=== PATIENT | female | born 1955 | race Caucasian/White ===

== ENCOUNTER 2022-04-14 15:45 | Observation (INO) ==
[2022-04-14] MEDS ORDERED: 0.9 % Sodium Chloride 1,000 ML IVC ONE (16:06)
[2022-04-14] MEDS ORDERED: 0.9 % Sodium Chloride 1,000 ML IVC SCH (16:15)
[2022-04-14] MEDS ORDERED: Naloxone 0.4 MG/ML INJ IVP PRN ×3 (17:27→17:51)
[2022-04-14] MEDS ORDERED: Ibuprofen 400 MG TABLET PO ONE (17:55)
[2022-04-14] MEDS ORDERED: Oxymetazoline Nasal SPRAY BOTTLE 15ML NS SCH (18:00)
[2022-04-14] MEDS: 0.9 % Sodium Chloride 1,000 ML IVC SCH (22:35)
[2022-04-15 06:04] LABS: Basophils # 0.1 K/mcL (0.0-0.2); Basophils % 0.8 %; Eosinophils # 0.1 K/mcL (0.0-0.6); Eosinophils % 0.7 %; Hematocrit 25.8 % (35.3-44.9); Hemoglobin 9.3 g/dL (11.5-15.4); Immature Granulocytes % 1.1 % (0-4); Lymphocytes # 0.8 K/mcL (0.6-4.6); Lymphocytes % 10.7 %; Mean Corpuscular Hemoglobin 33.7 pg (28.0-33.3); Mean Corpuscular Volume 93.5 fL (83.0-100.0); Mean Platelet Volume 8.2 fL (9.4-12.4); Monocytes # 0.8 K/mcL (0.0-1.3); Monocytes % 11.1 %; Neutrophils # 5.6 K/mcL (1.6-8.9); Platelet Count 372 K/mcL (140-400); Red Blood Count 2.76 M/mcL (3.82-4.97); Red Cell Distribution Width 12.9 % (11.5-14.5); Segmented Neutrophils % 75.6 %; White Blood Count 7.4 K/mcL (4.3-11.1)
[2022-04-15 06:28] LABS: Albumin 3.8 g/dL (3.5-5.7); Albumin/Globulin Ratio 1.7 (1.1-2.2); Bilirubin,Total 0.6 mg/dL (0.3-1.0); Calcium 9.2 mg/dL (8.6-10.3); Globulin 2.3 g/dL (2.4-3.5); Magnesium 1.3 mg/dL (1.6-2.6); Potassium 3.6 mEq/L (3.5-5.1); Total Protein 6.1 g/dL (6.4-8.9)
[2022-04-15] MEDS: *HR* Enoxaparin 40 MG/0.4 ML SYRINGE SQ SCH (06:32)
[2022-04-15] MEDS: 0.9 % Sodium Chloride 1,000 ML IVC SCH (08:48)
[2022-04-15] MEDS ORDERED: methylPREDNISolone 4 MG TABLET PO SCH (09:00)
[2022-04-15] MEDS ORDERED: traZODone 50 MG TABLET PO PRN (19:13)
[2022-04-16 00:24] VITALS: RESP 16
[2022-04-16] MEDS: *HR* Enoxaparin 40 MG/0.4 ML SYRINGE SQ SCH (05:30)
[2022-04-16 07:04] LABS: Basophils # 0.1 K/mcL (0.0-0.2); Basophils % 0.9 %; Eosinophils % 0.3 %; Hematocrit 24.8 % (35.3-44.9); Hemoglobin 8.8 g/dL (11.5-15.4); Immature Granulocytes % 1.6 % (0-4); Lymphocytes # 0.6 K/mcL (0.6-4.6); Lymphocytes % 8.4 %; Mean Corpuscular HGB Conc 35.5 g/dL (31.6-35.5); Mean Corpuscular Hemoglobin 33.5 pg (28.0-33.3); Mean Corpuscular Volume 94.3 fL (83.0-100.0); Mean Platelet Volume 8.7 fL (9.4-12.4); Monocytes # 0.9 K/mcL (0.0-1.3); Monocytes % 12.9 %; Neutrophils # 5.4 K/mcL (1.6-8.9); Platelet Count 379 K/mcL (140-400); Red Blood Count 2.63 M/mcL (3.82-4.97); Red Cell Distribution Width 12.9 % (11.5-14.5); Segmented Neutrophils % 75.9 %; White Blood Count 7.1 K/mcL (4.3-11.1)
[2022-04-16 07:27] LABS: Calcium 9.2 mg/dL (8.6-10.3); Magnesium 1.2 mg/dL (1.6-2.6); Potassium 3.2 mEq/L (3.5-5.1)
[2022-04-16 11:03] VITALS: BP 114/72; PULSE 73; TEMP 98.7; O2SAT 98
== END 2022-04-16 16:15 | disposition home or self-care (01) ==
LOC: INPPIK 15:45 → EMEROOPIK 15:45 → INPPIK 17:55
PROVIDERS: ADMIT Internal Medicine; ATTEND Internal Medicine